=== PATIENT | female | born 1990 | race Caucasian/White ===

== ENCOUNTER 2019-12-16 07:47 | Outpatient (REF) | payer MEDICAID, SELFPAY ==
--- NOTE | 2019-12-16 08:00 | CT_ITS ---
EXAMINATION: CT SOFT TISSUE NECK WITH CONTRAST CLINICAL INFORMATION: Localized swelling, mass/lump on the neck. COMPARISON: Soft tissue neck ultrasound from 09/27/2019. TECHNIQUE: Multidetector helical imaging was performed in the axial plane following the administration of 60 mL of Omnipaque 350 intravenous contrast. Multiple axial reformats and coronal/sagittal reconstructions were created the technologist workstation for review. DLP: 468 mGy-cm This CT examination was performed using dose optimization techniques as appropriate, variously including the following: *Automated exposure control. *Adjustment of mA and/or kV according to patient size (this includes techniques or standardized protocols for targeted exams where dose is matched to indication/reason for exam; i.e. extremities or head). *Use of iterative reconstruction technique. FINDINGS: No significant cutaneous thickening or subcutaneous inflammation. No discrete fluid collection within the deep tissues of the neck. The premaxillary, retromaxillary, pterygopalatine fossa, orbital apical, parapharyngeal, and prelaryngeal adipose tissue is maintained. Normal appearance of the parotid, submandibular, and thyroid glands. No demonstrated salivary ductal dilatation. Normal mucosal contours of the pharynx and larynx without abnormal enhancement. No demonstrated focal lesions or abnormal enhancement within the intrinsic tissues of the tongue or floor of mouth. Mildly prominent bilateral level Ib lymph nodes, measuring 1.1 cm. Bilateral level IIa lymph nodes measure up to 1.7 cm. Level IIb and III lymph nodes measure between 1-1.3 cm bilaterally. Bilateral level Vb lymph nodes measure up to 1.1 cm. Multiple additional scattered subcentimeter lymph nodes throughout the neck, none of which are abnormally enhancing. Normal appearance of the hyoid bone, thyroid cartilage, or cartilaginous trachea. The airways remains widely patent. No radiopaque foreign bodies. The atlantooccipital and atlantoaxial articulations remain well aligned. Straightening of the normal cervical lordosis. Otherwise, there is anatomic alignment of the cervical spine. No evidence of acute fracture or subluxation of the cervical spine. The vertebral body heights are maintained. The intervertebral disc spaces are maintained. No evidence of epidural collection. There is no prevertebral soft tissue swelling. Normal opacification of the cervical arterial and venous structures. The visualized portion of the skull base is without significant abnormalities. Moderate mucous retention cyst within the right sphenoid air cell. Mild mucosal thickening of the maxillary and ethmoid sinuses. The mastoid air cells and middle ear cavities remain well aerated. No demonstrated significant periapical odontogenic disease. CT Upper Chest: The visualized lung apices and upper mediastinum are within normal limits. IMPRESSION: Nonspecific mildly prominent bilateral cervical chain lymph nodes, similar to ultrasound imaging from 09/27/2019. These lymph nodes demonstrate relatively normal morphology without evidence of abnormal enhancement or necrosis. No additional CT abnormalities of the neck.
== END 2019-12-16 07:48 | disposition home or self-care (01) ==
LOC: HO.CT 07:47
PROVIDERS: PCP Internal Medicine; Visit Provider Internal Medicine
DX: R22.1 Localized swelling, mass and lump, neck (principal)
CPT/HCPCS: 70491

== ENCOUNTER 2024-09-26 22:14 | Emergency (ER) | payer MEDICAID, SELFPAY ==
--- NOTE | ~2024-09-26 | XR_ITS ---
CLINICAL HISTORY: chills, malaise, cough 2 view chest x-ray Comparison: None provided Findings: There is slight interstitial prominence. No consolidation or effusion. Heart size at the upper limits. No acute fracture. IMPRESSION: Slight interstitial prominence. This could be artifactual due to habitus, or can be seen with edema /infection. Follow-up as needed. This document has been electronically signed by: Azucena Reeves MD on 09/27/2024 00:53:51
[2024-09-26 22:22] VITALS: BP 116/69; PULSE 105; RESP 16; TEMP 37.5; O2SAT 97; BMI 57.7
--- NOTE | 2024-09-26 22:25 | ED_ITS ---
HPI - General Adult General Chief complaint: Urogenital-Female Stated complaint: ? uti Time Seen by Provider: 09/26/24 22:48 Source: patient Mode of arrival: ambulatory Limitations: no limitations History of Present Illness ED Provider: Vashti Brown NP HPI narrative: Patient is a 33-year-old female who presents emergency department for evaluation. She reports over the past few days she has been feeling generally unwell, having chills but no reported fever nausea but no vomiting, felt as though her urine was dark and potentially foul smelling but denies dysuria, hematuria, frequency/urgency/hesitancy. She admits that she only drinks coffee and soda, does not drink any free water. Has been drinking less due to her nausea. She denies any associated abdominal pain. She denies any abnormal vaginal discharge or bleeding, concern for , concern for STIs, pelvic pain. No headache, dizziness or lightheadedness. No chest pain or shortness of breath. Denies any known tick exposure, rashes or lesions. Related Data Previous Rx's ?Medication ?Instructions ?Recorded azithromycin 250 mg tablet See Rx Instructions PO .COM PLEX #6 09/27/24 tabs Allergies Allergy/AdvReac Type Severity Reaction Status Date / Time amoxicillin (AMOXICILLIN) Allergy Unknown UNKNOWN Verified 09/26/24 22:29 Penicillins (PENICILLINS) Allergy Unknown UNKNOWN Verified 09/26/24 22:29 clindamycin AdvReac Unknown Verified 09/26/24 22:29 Review of Systems 2 Review of Systems: Yes all other systems are reviewed and are negative PMFSH Past Medical History Attestation statement: The following information was validated with the patient. Source: old records reviewed Social History Social History Advance Directives: Yes Advance Directives on File: Yes Advance Directives Date on File: 12/16/19 Do you have a plan to hurt others: No Plan Physical Exam ED Vital Signs: Vital Signs - 24 hr 09/26/24 22:22 Temperature 99.5 F Pulse Rate 105 H Respiratory Rate 16 Blood Pressure 116/69 Pulse Oximetry 97 Oxygen Delivery Method Room Air BMI result Body Mass Index 57.7 Appearance: Alert.?Oriented to person, place and time. No acute distress.?Normal affect. Eyes: Pupils equal, round and reactive to light.? ENT: Pharynx normal.??Uvula midline. Neck: Normal inspection.? Neck supple.??No adenopathy. CVS: Heart sounds normal. Normal heart rate and rhythm.? Pulses normal.?? Respiratory: No respiratory distress.? Lung sounds clear to auscultation bilaterally?? Abdomen: Soft and non-tender. Normoactive bowel sounds. No CVAT. ? Skin: Skin warm and dry.? Normal skin color.? Extremities: No lower extremity edema.? No calf ttp? Neuro: Moves all extremities spontaneously. Sensation intact bilaterally. No focal neuro deficits. Ambulates with normal steady gait. Course Course Course Narrative: Medical screening exam performed. Please refer to detailed history, exam, evaluation, and management by primary provider. 33-year old female with generalized weakness, fatigue, and dark urine. Check labs, UA. Medical Decision Making Medical Decision Making MDM Narrative: Patient is a 33-year-old female past medical history of preeclampsia months ago who presenting for evaluation of 3 days of general malaise, chills, nausea, poor oral intake as per HPI. She appears fatigued, she is very mildly tachycardic with pulse of 105, afebrile. No tachypnea or hypoxia. She is not hypotensive. She has no focal neurological deficits. Lung sounds are diminished throughout, in part may be secondary to body habitus. Has a benign abdominal examination. Her symptoms are all vague favoring potentially a viral illness, will send tick-borne panel including Lyme studies off to the lab, though these will not result today. Expressed that her urine was dark in color perhaps values smelling may be secondary to her lack of oral intake/dehydration, she has no CVA tenderness on examination to suggest pyelonephritis and folic, and urinalysis was obtained and is without microscopic hematuria or signs of infection. HCG is negative. COVID/influenza testing is negative. She has mild leukopenia 4,400 anemia without left shift, no anemia,, no thrombocytopenia. No significant electrolyte derangement. No CATHY. LFTs overall unremarkable. Chest x-ray reveals a slight interstitial prominence may be artifact due to body habitus versus infection, given her symptoms, will treat with a course of azithromycin in addition to conservative treatment at home. No recent unintentional weight loss, back pain or recent surgical procedures, no use of IVDA, recreational drugs or alcohol usage. Will discharge home with strict return precautions. All questions answered. Stable for discharge Differential Diagnosis Differential Diagnoses: The differential diagnosis associated with the presentation includes (See narrative above) Admission/Observation Consideration of admission/observation: Escalation of care including admission/observation considered Lab Data MDM Lab Attestation statement: I reviewed the patient's lab results. (See narrative above) 09/26/24 22:41 09/26/24 22:41 Labs: Lab Results 09/26/24 Range/Units 22:41 WBC 4.4 L (4.8-10.8) X10*3/uL RBC 4.27 (4.20-5.50) X10*6/uL Hgb 12.0 (12.0-16.0) g/dl Hct 35.9 L (37.0-47.0) % MCV 84.1 (80.0-98.0) fL MCH 28.1 (27.0-33.0) pg MCHC 33.4 (31.0-35.0) g/dl RDW 13.1 (11.0-16.0) % Plt Count 208 (160-400) X10*3/uL MPV 9.1 L (9.4-12.3) fL Immature Gran % (Auto) 0.2 (0.0-0.4) % Neut % (Auto) 67.9 (45-73) % Lymph % (Auto) 17.4 L (20-40) % Villalba % (Auto) 9.0 (2-11) % Eos % (Auto) 5.0 H (0-4) % Baso % (Auto) 0.5 (0-2) % Lymph # (Auto) 0.8 L (1.2-4.9) X10*3/uL Villalba # (Auto) 0.4 (0.1-1.2) X10*3/uL Eos # (Auto) 0.2 (0.0-0.4) X10*3/uL Baso # (Auto) 0.0 (0.0-0.2) X10*3/uL Abs Immat Gran (auto) 0.01 (0.00-0.03) X10*3/uL Absolute Neuts (auto) 3.0 (2.0-8.3) x10*3/uL Absolute Nucleated RBC 0.000 (0.0-0.012) X10*3/uL Nucleated RBC % (auto) 0.0 (0.0-0.2) /100WBC Sodium 134 L (135-145) mmol/L Potassium 3.9 (3.3-5.1) mmol/L Chloride 104 (96-108) mmol/L Carbon Dioxide 22 (22-29) mmol/L Anion Gap 12 (12-20) BUN 8 L (9-16) mg/dL Creatinine 0.66 (0.5-1.4) mg/dL Estim Creat Clear Calc 182.8 Estimated GFR > 60 Random Glucose 104 (60-115) mg/dL Calcium 8.6 (8.4-10.2) mg/dL Total Bilirubin 0.3 (0.0-1.0) mg/dL AST 30 (5-31) U/L ALT 32 H (0-31) U/L Alkaline Phosphatase 93 (39-117) U/L Total Protein 7.2 (6.5-8.0) g/dL Albumin 3.9 (3.5-5.0) g/dL Urine Color Yellow Urine Appearance Clear Urine pH 6.0 (5.0-9.0) Ur Specific Arnold 1.010 (1.005-1.025) Urine Protein Negative (Neg-Trace) mg/dL Urine Glucose (UA) Negative (Negative) mg/dL Urine Ketones Negative (Negative) mg/dL Urine Blood Negative (Negative) Urine Nitrite Negative (Negative) Ur Leukocyte Esterase Negative (Negative) Urine Test NEGATIVE (NEGATIVE) Influenza Type A (PCR) NEGATIVE (Negative) Influenza Type B (PCR) NEGATIVE (Negative) RSV RNA Qual (PCR) NEGATIVE (Negative) SARS-CoV-2 RNA (RT-PCR) NEGATIVE (Negative) Independent Interpretation I performed an independent interpretation of an: Plain X-Ray (See narrative above) Radiology Impression Discussion of test interpretation with radiology: I have reviewed the radiologist's reading. Radiologist Impression: 2 view chest x-ray Comparison: None provided Findings: There is slight interstitial prominence. No consolidation or effusion. Heart size at the upper limits. No acute fracture. IMPRESSION: Slight interstitial prominence. This could be artifactual due to habitus, or can be seen with edema /infection. Follow-up as needed. Independent Historian Clinical information obtained from an independent historian. History obtained from or confirmed by: Spouse External Record Review External record reviewed: Outpatient record Prescription Management I considered prescription management with: Pain Medication and Antibiotic Discharge Plan Discharge Clinical Impression: Pneumonia Qualifiers: Pneumonia type: due to unspecified organism Patient Disposition: Home, Self-Care Instructions: Pneumonia (ED) Additional Instructions: Chest x-ray today is concerning that you may have a small early pneumonia, this could explain the symptoms that you are currently experiencing. As discussed, we have additionally sent testing for tick-borne illnesses as this may presents similarly also. Please complete the entire course of antibiotics as prescribed. Just skip any doses or stop taking early even if you begin to feel better. It is very important to use a back-up form of control, such as barrier condoms/abstinence, while on antibiotics and for one week after as they may be ineffective in preventing while on the antibiotics. While taking antibiotics, please include probiotics that can be found over the counter or yogurt in your diet. If symptoms of a yeast infection or diarrhea occur, please seek evaluation. You can take ibuprofen 200 mg, 3 tablets (600mg) every 6-8 hours as needed for pain, in addition to Tylenol 500 mg, 2 tablets (1,000mg) every 4-6 hours as needed for pain, but not to exceed 3 doses daily (3,000mg).? She is that you are staying well hydrated drinking at least 8, 8-12 oz glasses of water daily. Contact your primary care provider for follow-up. Return back to emergency department with any new or worsening symptoms or concerns. Prescriptions: New azithromycin 250 mg tablet See Rx Instructions .ROUTE .COMPLEX Qty: 6 0RF Rx Instructions: For 250 mg dose pack: take 500 mg today (day 1), then 250 mg for 4 days (days 2-5) Referrals: Physician,None [Primary Care Provider, Medical] Print Language: Italian
[2024-09-26 22:46] LABS: MANUAL DIFF FLAG NO
[2024-09-26 22:48] LABS: Appearance Urine Clear; Glucose Urine UA Negative (Negative); Hematocrit 35.9 % (37.0-47.0); Hemoglobin 12.0 g/dl (12.0-16.0); Imm Gran Abs Auto 0.01 X10*3/uL (0.00-0.03); Imm Gran Pct Auto 0.2 % (0.0-0.4); Lymphocytes Absolute Auto 0.8 X10*3/uL (1.2-4.9); Mean Corpuscular HGB Conc 33.4 g/dl (31.0-35.0); Mean Corpuscular Hemoglobin 28.1 pg (27.0-33.0); Mean Corpuscular Volume 84.1 fL (80.0-98.0); NRBC Abs Auto 0.000 X10*3/uL (0.0-0.012); NRBC Pct Auto 0.0 /100WBC (0.0-0.2); PH 6.0 (5.0-9.0); Platelet Count 208 X10*3/uL (160-400); Red Blood Count 4.27 X10*6/uL (4.20-5.50); Specific Gravity - Urine 1.010 (1.005-1.025); White Blood Count 4.4 X10*3/uL (4.8-10.8)
[2024-09-26 22:50] LABS: UPreg QC Valid YES
[2024-09-26 23:05] LABS: Alanine Aminotransferase 32 U/L (0-31); Albumin Level 3.9 g/dL (3.5-5.0); Alkaline Phosphatase 93 U/L (39-117); Anion Gap 12 (12-20); Aspartate Amino Transferase 30 U/L (5-31); Blood Urea Nitrogen 8 mg/dL (9-16); Calcium 8.6 mg/dL (8.4-10.2); Carbon Dioxide 22 mmol/L (22-29); Chloride 104 mmol/L (96-108); Creatinine Clr Calc Pharmacy 182.8; Estimated Glomerular Filt Rate > 60; Potassium 3.9 mmol/L (3.3-5.1); Sodium 134 mmol/L (135-145); Total Protein 7.2 g/dL (6.5-8.0)
[2024-09-26 23:25] LABS: Resp Syncy Virus RNA Qual PCR NEGATIVE (Negative); SARS COV2 PCR INHOUSE NEGATIVE (Negative)
[2024-09-27 02:05] VITALS: BP 116/69; PULSE 105; RESP 16; TEMP 37.5; O2SAT 97
[2024-09-28 21:23] LABS: A. Phagocytphilium DNA,RT-PCR NOT DETECTED (NOT DETECTED); Babesia Microti DNA, RT-PCR NOT DETECTED (NOT DETECTED); Borrelia Miyamotoi,DNA RT-PCR NOT DETECTED (NOT DETECTED); E.Chaffeensis DNA RT-PCR NOT DETECTED (NOT DETECTED); Lyme(Borrelia ssp)DNA RT-PCR NOT DETECTED (NOT DETECTED)
[2024-09-29 11:54] LABS: Lyme Abs Screen <0.90 index
== END 2024-09-27 02:06 | disposition home or self-care (01) ==
PROVIDERS: Nurse Practitioner Family; Physician Assistant; Emergency Provider Emergency Medicine
DX: J18.9 Pneumonia, unspecified organism (principal); R05.9 Cough, unspecified; R53.81 Other malaise; R11.0 Nausea
CPT/HCPCS: 36415; 71046; 80053; 81003; 81025; 85025; 86617; 86618; 87468; 87469; 87478; 87484; 87637; 87798; 99282; 99283

== ENCOUNTER → 2024-09-27 00:05 | Outpatient (BNV) | payer MEDICAID, SELFPAY | PROVIDERS: Visit Provider Radiology Diagnostic Radiology | DX: R05.9 Cough, unspecified (principal) | CPT/HCPCS: 71046 ==